=== PATIENT | female | born 1945 ===

== ENCOUNTER 2018-09-13 15:44 | Inpatient (IN) | payer OTHER ==
[~2018-09-13] VITALS: Ht 165.1 cm; Wt 62.5 kg
[2018-09-13] MEDS ORDERED: INSULANPEN (15:57)
[2018-09-13] MEDS ORDERED: Humalog Mi100 UNIT/4 (15:57)
[2018-09-13 16:35] LABS: BASOPHILS ABSOLUTE AUTO 0.04 K/mm3 (0.00-0.23); BASOPHILS PERCENT AUTO 1 % (0-2); EOSINOPHILS ABSOLUTE AUTO 0.11 K/mm3 (0.00-0.68); EOSINOPHILS PERCENT AUTO 2 % (0-6); Hematocrit 34.4 % (33.0-51.0); Hemoglobin 10.6 g/dL (11.5-16.0); IMMATURE GRAN ABSOLUTE AUTO 0.02 K/mm3 (0.00-0.10); IMMATURE GRAN PERCENT AUTO 0 % (0-1); LYMPHOCYTES ABSOLUTE AUTO 1.07 K/mm3 (0.84-5.20); LYMPHOCYTES PERCENT AUTO 18 % (21-46); MONOCYTES ABSOLUTE AUTO 0.37 K/mm3 (0.16-1.47); MONOCYTES PERCENT AUTO 6 % (4-13); Mean Corpuscular HGB 25.1 pg (26.0-34.0); Mean Corpuscular HGB Conc 30.8 g/dL (31.5-36.5); Mean Corpuscular Volume 82 fL (80-100); Mean Platelet Volume 9.7 fL (9.1-12.4); NEUTROPHILS PERCENT AUTO 73 % (41-73); Platelet Count 442 K/mm3 (150-400); RDW Coefficient Variation 14.4 % (11.7-14.2); RDW Standard Deviation 42.4 fL (35.1-46.3); Red Blood Cell Count 4.22 M/mm3 (3.80-5.20); White Blood Cell Count 5.91 K/mm3 (4.00-11.30)
[2018-09-13 16:55] LABS: Alanine Aminotransfer (ALT/SGP 16 U/L (12-78); Albumin, Blood 3.1 g/dL (3.4-5.0); Albumin/Globulin Ratio 0.8 (0.8-1.8); Alk Phos 158 U/L (50-136); Anion Gap 10 mmol/L (6-16); Aspartate Aminotrans (AST/SGOT 21 U/L (12-37); Bilirubin, Total 0.5 mg/dL (0.1-1.0); Blood Urea Nitrogen 12 mg/dL (8-24); Bun/Creatinine Ratio 20.4 (12.0-20.0); CO2, Blood 23 mmol/L (21-32); Calcium, Blood 8.3 mg/dL (8.5-10.1); Chloride, Blood 105 mmol/L (98-108); Creatinine, Blood 0.59 mg/dL (0.40-1.00); Glomerular Filtration Rate >60 (60-); Glucose, Blood 143 mg/dL (70-99); Potassium, Blood 3.2 mmol/L (3.5-5.5); Sodium, Blood 138 mmol/L (136-145); Total Protein, Blood 7.1 g/dL (6.4-8.2)
--- NOTE | 2018-09-14 05:57 | NUR ---
PCU ADMIT AND NOC SHIFT SUMMARY PATIENT ARRIVED TO UNIT VIA GURNEY AND AMBULATED TO UNIT BED. PATIENT ALERT AND ORIENTED X4. HEPARIN GTT RUNNING T/O. VSS. PATIENT REPORTS CHILLS/FEVER/NAUSEA THAT IS COMING AND GOING - NOTED PER VS. PATIENT HAD SMALL AMOUNT OF EMESIS X2. DENIES CHEST PAIN, BUT HAS PERIODS OF SEVERE ORTHOPNEA, SOB WITH ANY EXCERTION AND NAUSEA. VSS. TROPONIN IS TRENDING DOWN - PATIENT REMAINS SYMPTOMATIC. NO CARDIAC EVENTS NOTED PER TELE T/O SHIFT. WILL CONTINUE TO MONITOR UNTIL REPORT IS GIVEN TO DAYSHIFT RN.
--- NOTE | 2018-09-14 08:15 | NUR ---
PT PLEASANT COOP A/O. STATES MEDICATION TJ. NEEDS US TO GO EASY,. AGREED. DR HOLMAN IS ALREADY WORKING WITH CBG AND INSULIN. H/R REG, NO MURMER NOTED. PER TELE: S TACH AT 107. LUNGS CLEAR, RESP EASY, UNLABORED. ON R/A. BT HYPO. LAST BM THIS AM RECENTLY . VOIDS PER BATHROOM. BED IN LOW POSITION,. CALL LITE IN REACH, CALLS APPROP
[2018-09-14 08:34] LABS: BASOPHILS ABSOLUTE AUTO 0.02 K/mm3 (0.00-0.23); BASOPHILS PERCENT AUTO 0 % (0-2); EOSINOPHILS ABSOLUTE AUTO 0.01 K/mm3 (0.00-0.68); EOSINOPHILS PERCENT AUTO 0 % (0-6); Hematocrit 32.7 % (33.0-51.0); Hemoglobin 9.9 g/dL (11.5-16.0); IMMATURE GRAN ABSOLUTE AUTO 0.01 K/mm3 (0.00-0.10); IMMATURE GRAN PERCENT AUTO 0 % (0-1); LYMPHOCYTES ABSOLUTE AUTO 0.51 K/mm3 (0.84-5.20); LYMPHOCYTES PERCENT AUTO 10 % (21-46); MONOCYTES ABSOLUTE AUTO 0.24 K/mm3 (0.16-1.47); MONOCYTES PERCENT AUTO 5 % (4-13); Mean Corpuscular HGB 24.5 pg (26.0-34.0); Mean Corpuscular HGB Conc 30.3 g/dL (31.5-36.5); Mean Corpuscular Volume 81 fL (80-100); Mean Platelet Volume 10.2 fL (9.1-12.4); NEUTROPHILS ABSOLUTE AUTO 4.28 K/mm3 (1.96-9.15); NEUTROPHILS PERCENT AUTO 84 % (41-73); Platelet Count 402 K/mm3 (150-400); RDW Coefficient Variation 14.6 % (11.7-14.2); RDW Standard Deviation 42.3 fL (35.1-46.3); Red Blood Cell Count 4.04 M/mm3 (3.80-5.20); White Blood Cell Count 5.07 K/mm3 (4.00-11.30)
[2018-09-14 09:25] LABS: Anion Gap 8 mmol/L (6-16); Blood Urea Nitrogen 11 mg/dL (8-24); Bun/Creatinine Ratio 20.2 (12.0-20.0); CO2, Blood 22 mmol/L (21-32); Calcium, Blood 8.2 mg/dL (8.5-10.1); Chloride, Blood 106 mmol/L (98-108); Creatinine, Blood 0.55 mg/dL (0.40-1.00); Glomerular Filtration Rate >60 (60-); Glucose, Blood 320 mg/dL (70-99); Potassium, Blood 4.6 mmol/L (3.5-5.5); Sodium, Blood 136 mmol/L (136-145)
--- NOTE | 2018-09-14 11:09 | NUR ---
Echocardiogram completed.
--- NOTE | 2018-09-14 14:17 | NUR ---
PT RETURNED FROM [place]. PT STATES NEEDS 3 VESSLE BYPASS. 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 EXPECTING SHIP TO [place]. DR STOPPED HEPARIN DRIP. REQUESTED DR TO CALL WITH ORDERS AND IF NPO AND DOUBLE CHECK HEPARIN. H/C RN STATES 11 CC AIR IN WRISTBAND. STATES PT TOOK NO SEDATION MEDS FOR PROCEDURE TR BAND RT WRIST. PT STATES SMALL QUARTER SIZED BRUISE ANTERIOR TO TR BAND HAS BEEN THERE PRIOR. PT STATES NO NUMBNESS IN FINGERS. CAP REFILL < 3 SEC. HAS FEELING ALL FINGERS AND THUMB. NO BLEEDING, LEAKING, SWELLING, SOME BRUISING NOTED.
--- NOTE | 2018-09-14 16:27 | NUR ---
PT HERE 1400 2 CC OUT AIR AT 1500 PT C.O PAIN NUMBNESS IN THUMB AND 1ST DIGIT. TOOK 1 CC OUT AGAIN AT 1600. STARTED LEAKING, REPLACED 1 CC. WAITING.
--- NOTE | 2018-09-14 16:44 | NUR ---
CALLED REPORT TO MICHELLE PATRICK, AT [facility]. [phone]. DO NOT KNOW TIME OF TRANSPORT AT THIS TIME.
--- NOTE | 2018-09-14 17:59 | NUR ---
COBRA TRANSFER: [facility] ambulance here to poultry picker Pt for transfer to [place]. R wrist radial site no oozing, hematoma or swelling at this time. No air removed at this time. Report given to paramedics and called to MICHELLE Mccloud at [facility]. Pt denies CP, SOB at this time. Pt left via gurney transport in ambulance. Stable at that time.
== END 2018-09-14 17:35 | disposition short-term general hospital (02) | DRG 280 ==
LOC: ER 15:44 → PCU 15:45 → ER 15:45 → PCU 15:45
PROVIDERS: Emergency Medicine; ADMIT Internal Medicine
PROC: B2111ZZ Fluoroscopy of Multiple Coronary Arteries using Low Osmolar Contrast (ICD-10-PCS; principal; 2018-09-14)
PROC: 4A023N7 Measurement of Cardiac Sampling and Pressure, Left Heart, Percutaneous Approach (ICD-10-PCS; 2018-09-14)
DX: I21.4 Non-ST elevation (NSTEMI) myocardial infarction (principal); I50.21 Acute systolic (congestive) heart failure; I25.10 Atherosclerotic heart disease of native coronary artery without angina pectoris; E87.6 Hypokalemia; E10.65 Type 1 diabetes mellitus with hyperglycemia; E78.5 Hyperlipidemia, unspecified; Z79.4 Long term (current) use of insulin
CPT/HCPCS: 36415; 80048; 80053; 82947; 84484; 85025; 85730; 93005; 93010; 93306; 93458; 96365; 99285-25; C1769; C1894; G0378; J1644; J2250; J2405; J3010; J7030; Q9967

== ENCOUNTER → 2018-09-13 | Outpatient (CLI) | payer OTHER ==
[~2018-09-13] MED LIST: Humalog Mi100 UNIT/4; INSULANPEN
[2018-09-13 14:33] LABS: BASOPHILS ABSOLUTE AUTO 0.03 K/mm3 (0.00-0.23); BASOPHILS PERCENT AUTO 1 % (0-2); EOSINOPHILS PERCENT AUTO 2 % (0-6); Hemoglobin 10.4 g/dL (11.5-16.0); IMMATURE GRAN ABSOLUTE AUTO 0.01 K/mm3 (0.00-0.10); IMMATURE GRAN PERCENT AUTO 0 % (0-1); LYMPHOCYTES PERCENT AUTO 22 % (21-46); MONOCYTES PERCENT AUTO 6 % (4-13); Mean Corpuscular HGB 25.1 pg (26.0-34.0); Mean Corpuscular HGB Conc 31.5 g/dL (31.5-36.5); Mean Corpuscular Volume 80 fL (80-100); Mean Platelet Volume 9.9 fL (9.1-12.4); NEUTROPHILS ABSOLUTE AUTO 3.42 K/mm3 (1.96-9.15); NEUTROPHILS PERCENT AUTO 69 % (41-73); Platelet Count 474 K/mm3 (150-400); RDW Coefficient Variation 14.5 % (11.7-14.2); RDW Standard Deviation 41.6 fL (35.1-46.3); Red Blood Cell Count 4.14 M/mm3 (3.80-5.20); White Blood Cell Count 4.96 K/mm3 (4.00-11.30)
[2018-09-13 15:04] LABS: Anion Gap 12 mmol/L (6-16); Blood Urea Nitrogen 12 mg/dL (8-24); Bun/Creatinine Ratio 16.2 (12.0-20.0); CO2, Blood 25 mmol/L (21-32); Calcium, Blood 8.7 mg/dL (8.5-10.1); Chloride, Blood 105 mmol/L (98-108); Creatinine, Blood 0.74 mg/dL (0.40-1.00); Glomerular Filtration Rate >60 (60-); Glucose, Blood 139 mg/dL (70-99); Potassium, Blood 3.7 mmol/L (3.5-5.5); Sodium, Blood 142 mmol/L (136-145); Thyroid Stimulating Hormone 1.318 uIU/mL (0.360-4.800)
[2018-09-13 15:11] LABS: Troponin I 1.674 ng/mL (0.000-0.040)
== END | disposition home or self-care (01) ==
LOC: LAB SHORT 14:30 → LAB EV 14:30
PROVIDERS: Physician Assistant Surgical
DX: R06.09 Other forms of dyspnea (principal)
CPT/HCPCS: 80048; 84443; 84484; 85025

== ENCOUNTER → 2018-10-02 | Outpatient (CLI) | payer OTHER | LOC: LAB 14:49 → LAB SHORT 14:49 → EDSTATUS 10-01 16:30 → LAB FUT 10-01 16:30 | DX: I25.110 Atherosclerotic heart disease of native coronary artery with unstable angina pectoris (principal); R19.7 Diarrhea, unspecified; Z95.1 Presence of aortocoronary bypass graft | CPT/HCPCS: 87324; 87493 ==

== ENCOUNTER 2018-11-08 00:10 | Day surgery (SDC) | payer OTHER | END 2018-11-08 12:00 | disposition home or self-care (01) | LOC: WOUND 00:10 | DX: L89.153 Pressure ulcer of sacral region, stage 3 (principal); E10.22 Type 1 diabetes mellitus with diabetic chronic kidney disease; N18.2 Chronic kidney disease, stage 2 (mild); I25.10 Atherosclerotic heart disease of native coronary artery without angina pectoris; E78.2 Mixed hyperlipidemia; J45.909 Unspecified asthma, uncomplicated; Z95.5 Presence of coronary angioplasty implant and graft; Z88.5 Allergy status to narcotic agent; Z87.891 Personal history of nicotine dependence; Z79.4 Long term (current) use of insulin ==

== ENCOUNTER 2018-11-15 08:08 | Day surgery (SDC) | payer OTHER | END 2018-11-15 23:19 | disposition home or self-care (01) | LOC: WOUND 08:08 | DX: L89.153 Pressure ulcer of sacral region, stage 3 (principal); I25.10 Atherosclerotic heart disease of native coronary artery without angina pectoris; J45.909 Unspecified asthma, uncomplicated; I25.2 Old myocardial infarction; E10.22 Type 1 diabetes mellitus with diabetic chronic kidney disease; N18.2 Chronic kidney disease, stage 2 (mild); E78.2 Mixed hyperlipidemia ==

== ENCOUNTER 2018-11-22 00:51 | Day surgery (SDC) | payer OTHER | END 2018-11-22 23:05 | disposition home or self-care (01) | LOC: WOUND 00:51 | DX: L89.153 Pressure ulcer of sacral region, stage 3 (principal); E10.29 Type 1 diabetes mellitus with other diabetic kidney complication ==

== ENCOUNTER 2018-12-06 13:37 | Day surgery (SDC) | payer OTHER | END 2018-12-06 15:00 | disposition home or self-care (01) | LOC: WOUND 13:37 | DX: L89.153 Pressure ulcer of sacral region, stage 3 (principal); E10.22 Type 1 diabetes mellitus with diabetic chronic kidney disease; N18.2 Chronic kidney disease, stage 2 (mild); I42.9 Cardiomyopathy, unspecified; I25.10 Atherosclerotic heart disease of native coronary artery without angina pectoris; E78.2 Mixed hyperlipidemia; J45.909 Unspecified asthma, uncomplicated; Z95.1 Presence of aortocoronary bypass graft | CPT/HCPCS: G0463 ==

== ENCOUNTER 2018-12-27 00:26 | Day surgery (SDC) | payer OTHER | END 2018-12-28 22:57 | disposition home or self-care (01) | LOC: WOUND 00:26 | DX: L89.153 Pressure ulcer of sacral region, stage 3 (principal); E10.22 Type 1 diabetes mellitus with diabetic chronic kidney disease; N18.2 Chronic kidney disease, stage 2 (mild); I42.9 Cardiomyopathy, unspecified; I25.10 Atherosclerotic heart disease of native coronary artery without angina pectoris; E78.2 Mixed hyperlipidemia; J45.909 Unspecified asthma, uncomplicated; I25.2 Old myocardial infarction; Z95.1 Presence of aortocoronary bypass graft ==

== ENCOUNTER → 2019-05-22 | Outpatient (CLI) | payer OTHER ==
[2019-05-26 13:07] LABS: HPV 16 Negative (Negative); HPV 18 Negative (Negative); HPV OTHER HR TYPES Negative (Negative)
== END | disposition home or self-care (01) ==
LOC: LAB SHORT 16:28 → LAB 16:28
PROVIDERS: Nurse Practitioner Women's Health
DX: Z12.72 Encounter for screening for malignant neoplasm of vagina (principal); N89.8 Other specified noninflammatory disorders of vagina; Z91.89 Other specified personal risk factors, not elsewhere classified
CPT/HCPCS: 87070; 87205; 87624; G0123

== ENCOUNTER → 2020-09-13 | Outpatient (CLI) | payer OTHER | END | disposition home or self-care (01) | LOC: LAB SHORT 18:08 → LAB 18:08 | DX: L08.9 Local infection of the skin and subcutaneous tissue, unspecified (principal) | CPT/HCPCS: 87070; 87205 ==

== ENCOUNTER → 2022-09-11 | Outpatient (CLI) | payer OTHER | END | disposition home or self-care (01) | LOC: LAB 10:18 → LAB SHORT 10:18 | DX: N39.0 Urinary tract infection, site not specified (principal) | CPT/HCPCS: 87077; 87086; 87186 ==